=== PATIENT | male | born 1980 | race Caucasian/White ===

== ENCOUNTER → 2023-05-03 13:00 | Outpatient (BNV) | payer OTHER, SELFPAY | PROVIDERS: Visit Provider Psychiatry & Neurology Psychiatry | DX: F33.2 Major depressive disorder, recurrent severe without psychotic features (principal) | CPT/HCPCS: 90867; 90868 ==

== ENCOUNTER → 2023-06-04 13:30 | Outpatient (BNV) | payer OTHER, SELFPAY | PROVIDERS: Visit Provider Psychiatry & Neurology Psychiatry | DX: F33.2 Major depressive disorder, recurrent severe without psychotic features (principal) | CPT/HCPCS: 90868 ==

== ENCOUNTER 2023-07-19 13:30 | Outpatient (RCR) | payer OTHER, SELFPAY ==
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
--- NOTE | 2023-05-04 22:33 | HO.TMSDAILY2 ---
TMS Daily Progress Note Daily TMS Progress Note Date of Service: 05/03/23 Week #: 1 Treatment #(04-03): 1 PHQ-9 Pre-Treatment (03-31): 12 PHQ-9 Most Recent (03-31): 12 Reviewed: TMS Tech Note Reviewed Verification: I have reviewed the TMS Sailboat Captain Note and agree with the contents. The patient remains a candidate to continue TMS treatment per protocol. Assessment and Plan (1) Major depression, recurrent, chronic: Status: Acute (2) Chronic post-traumatic stress disorder (PTSD): Status: Acute (3) ADHD, hyperactive-impulsive type: Status: Acute Plan initial mapping completed without difficulty
--- NOTE | 2023-05-28 16:33 | P.PNPS_ITS ---
TMS Daily Progress Note Daily TMS Progress Note Date of Service: 05/21/23 Week #: 1 Treatment #(04-03): 2 PHQ-9 Pre-Treatment (03-31): 12 PHQ-9 Most Recent (03-31): 12 Reviewed: TMS Tech Note Reviewed Verification: I have reviewed the TMS Survey Superintendent Note and agree with the contents. The patient remains a candidate to continue TMS treatment per protocol. Assessment and Plan (1) Major depression, recurrent, chronic: Status: Acute (2) Chronic post-traumatic stress disorder (PTSD): Status: Acute Plan Treatment restarted after break tolerating treatment well
--- NOTE | 2023-05-28 16:41 | P.PNPS_ITS ---
TMS Daily Progress Note Daily TMS Progress Note Date of Service: 05/22/23 Week #: 1 Treatment #(04-03): 3 PHQ-9 Pre-Treatment (03-31): 12 PHQ-9 Most Recent (03-31): 12 Reviewed: TMS Tech Note Reviewed Verification: I have reviewed the TMS Senior Firewall Engineer Note and agree with the contents. The patient remains a candidate to continue TMS treatment per protocol. Assessment and Plan (1) Chronic post-traumatic stress disorder (PTSD): Status: Acute (2) Major depression, recurrent, chronic: Status: Acute Plan continue tx plan well tolerarated
--- NOTE | 2023-05-28 16:42 | P.PNPS_ITS ---
TMS Daily Progress Note Daily TMS Progress Note Date of Service: 05/23/23 Week #: 1 Treatment #(04-03): 4 PHQ-9 Pre-Treatment (03-31): 12 PHQ-9 Most Recent (03-31): 12 Reviewed: TMS Tech Note Reviewed Verification: I have reviewed the TMS Hatch Boss Note and agree with the contents. The patient remains a candidate to continue TMS treatment per protocol. Assessment and Plan (1) Chronic post-traumatic stress disorder (PTSD): Status: Acute (2) Major depression, recurrent, chronic: Status: Acute Plan MT gradually increased
--- NOTE | 2023-05-28 16:47 | P.PNPS_ITS ---
TMS Daily Progress Note Daily TMS Progress Note Date of Service: 05/24/23 Week #: 1 Treatment #(04-03): 5 PHQ-9 Pre-Treatment (03-31): 12 PHQ-9 Most Recent (03-31): 12 Reviewed: TMS Tech Note Reviewed Verification: I have reviewed the TMS Paintings Conservator Note and agree with the contents. The patient remains a candidate to continue TMS treatment per protocol.
--- NOTE | 2023-06-04 16:07 | HO.TMSDAILY2 ---
TMS Daily Progress Note Daily TMS Progress Note Date of Service: 06/01/23 Week #: 2 Treatment #(-): 9 PHQ-9 Pre-Treatment (-): 12 PHQ-9 Most Recent (03-31): 6 DANIE-7 Pre-Treatment (0-21): 12 DANIE-7 Most Recent (0-21): 6 Reviewed: TMS Tech Note Reviewed Verification: I have reviewed the TMS Compilation Clerk Note and agree with the contents. The patient remains a candidate to continue TMS treatment per protocol.
--- NOTE | 2023-06-07 11:02 | HO.TMSDAILY2 ---
TMS Daily Progress Note Daily TMS Progress Note Date of Service: 05/29/23 Week #: 2 Treatment #(-30): 6 PHQ-9 Pre-Treatment (-): 12 PHQ-9 Most Recent (03-31): 6 DANIE-7 Pre-Treatment (0-21): 12 DANIE-7 Most Recent (0-21): 6 Reviewed: TMS Tech Note Reviewed Verification: I have reviewed the TMS Former Hand Note and agree with the contents. The patient remains a candidate to continue TMS treatment per protocol.
--- NOTE | 2023-06-07 11:03 | P.PNPS_ITS ---
TMS Daily Progress Note Daily TMS Progress Note Date of Service: 05/30/23 Week #: 2 Treatment #(04-03): 7 PHQ-9 Pre-Treatment (-): 12 PHQ-9 Most Recent (03-31): 6 DANIE-7 Pre-Treatment (0-): 12 DANIE-7 Most Recent (0-): 6 Reviewed: TMS Tech Note Reviewed Verification: I have reviewed the TMS Corporate Events Director Note and agree with the contents. The patient remains a candidate to continue TMS treatment per protocol. Assessment and Plan (1) ADHD, hyperactive-impulsive type: Status: Acute (2) Chronic post-traumatic stress disorder (PTSD): Status: Acute (3) Major depression, recurrent, chronic: Status: Acute Plan Continue TMS some insomnia noted question from Prozac question improvement
--- NOTE | 2023-06-07 11:03 | P.PNPS_ITS ---
TMS Daily Progress Note Daily TMS Progress Note Date of Service: 06/06/23 Week #: 3 Treatment #(-30): 12 PHQ-9 Pre-Treatment (-): 12 PHQ-9 Most Recent (03-31): 5 DANIE-7 Pre-Treatment (0-21): 12 DANIE-7 Most Recent (0-21): 4 Reviewed: TMS Tech Note Reviewed Verification: I have reviewed the TMS High Lift Mule Operator Note and agree with the contents. The patient remains a candidate to continue TMS treatment per protocol.
--- NOTE | 2023-06-07 11:06 | HO.TMSDAILY2 ---
TMS Daily Progress Note Daily TMS Progress Note Date of Service: 05/31/23 Week #: 2 Treatment #(-): 8 PHQ-9 Pre-Treatment (-): 12 PHQ-9 Most Recent (03-31): 6 DANIE-7 Pre-Treatment (0-21): 12 DANIE-7 Most Recent (0-21): 6 Reviewed: TMS Tech Note Reviewed Verification: I have reviewed the TMS Packing House Supervisor Note and agree with the contents. The patient remains a candidate to continue TMS treatment per protocol. Assessment and Plan (1) Major depression, recurrent, chronic: Status: Acute Plan Patient showing clear improvement
--- NOTE | 2023-06-07 11:08 | HO.TMSDAILY2 ---
TMS Daily Progress Note Daily TMS Progress Note Date of Service: 06/04/23 Week #: 2 Treatment #(-): 10 PHQ-9 Pre-Treatment (-): 12 PHQ-9 Most Recent (03-31): 6 DANIE-7 Pre-Treatment (0-21): 12 DANIE-7 Most Recent (0-21): 6 Reviewed: TMS Tech Note Reviewed Verification: I have reviewed the TMS Drain Technician Note and agree with the contents. The patient remains a candidate to continue TMS treatment per protocol. Assessment and Plan (1) Major depression, recurrent, chronic: Status: Acute Plan Continue plan of care patient tolerating treatment feeling better
--- NOTE | 2023-06-07 11:11 | P.PNPS_ITS ---
TMS Daily Progress Note Daily TMS Progress Note Date of Service: 06/05/23 Week #: 3 Treatment #(-): 11 PHQ-9 Pre-Treatment (-): 12 PHQ-9 Most Recent (03-31): 6 DANIE-7 Pre-Treatment (0-21): 12 DANIE-7 Most Recent (0-21): 6 Reviewed: TMS Tech Note Reviewed Verification: I have reviewed the TMS Center Human Resources Manager Note and agree with the contents. The patient remains a candidate to continue TMS treatment per protocol. Assessment and Plan (1) Major depression, recurrent, chronic: Status: Acute Plan cont plan of care
--- NOTE | 2023-08-06 22:00 | P.PNPS_ITS ---
TMS Daily Progress Note Daily TMS Progress Note Date of Service: 06/07/23 Week #: 3 Treatment #(04-03): 13 PHQ-9 Pre-Treatment (-): 12 PHQ-9 Most Recent (03-31): 6 DANIE-7 Pre-Treatment (0-21): 12 DANIE-7 Most Recent (0-21): 6 Reviewed: TMS Tech Note Reviewed Verification: I have reviewed the TMS Direct Marketing Specialist Note and agree with the contents. The patient remains a candidate to continue TMS treatment per protocol. Assessment and Plan (1) Major depression, recurrent, chronic: Status: Acute (2) Chronic post-traumatic stress disorder (PTSD): Status: Acute
--- NOTE | 2023-08-06 22:04 | HO.TMSDAILY2 ---
TMS Daily Progress Note Daily TMS Progress Note Date of Service: 06/11/23 Week #: 3 Treatment #(-): 14 PHQ-9 Pre-Treatment (-): 12 PHQ-9 Most Recent (03-31): 6 DANIE-7 Pre-Treatment (0-21): 12 DANIE-7 Most Recent (0-21): 6 Reviewed: TMS Tech Note Reviewed Verification: I have reviewed the TMS Medical Practice Assistant Note and agree with the contents. The patient remains a candidate to continue TMS treatment per protocol. Assessment and Plan (1) Major depression, recurrent, chronic: Status: Acute (2) Chronic post-traumatic stress disorder (PTSD): Status: Acute Plan marked improvement noted
--- NOTE | 2023-08-06 22:07 | P.PNPS_ITS ---
TMS Daily Progress Note Daily TMS Progress Note Date of Service: 08/06/23 Week #: 3 Treatment #(-30): 15 PHQ-9 Pre-Treatment (-): 12 PHQ-9 Most Recent (03-31): 4 DANIE-7 Pre-Treatment (0-21): 12 DANIE-7 Most Recent (0-21): 6 Reviewed: TMS Tech Note Reviewed Verification: I have reviewed the TMS Warning Coordination Meteorologist Note and agree with the contents. The patient remains a candidate to continue TMS treatment per protocol. Assessment and Plan (1) Major depression, recurrent, chronic: Status: Acute (2) Chronic post-traumatic stress disorder (PTSD): Status: Acute Plan marked improvement noted
--- NOTE | 2023-08-06 22:09 | HO.TMSDAILY2 ---
TMS Daily Progress Note Daily TMS Progress Note Date of Service: 06/13/23 Week #: 4 Treatment #(04-03): 16 PHQ-9 Pre-Treatment (-): 12 PHQ-9 Most Recent (03-31): 4 DANIE-7 Pre-Treatment (0-21): 12 DANIE-7 Most Recent (0-21): 6 Reviewed: TMS Tech Note Reviewed Verification: I have reviewed the TMS Attending Urologist Note and agree with the contents. The patient remains a candidate to continue TMS treatment per protocol. Assessment and Plan (1) Major depression, recurrent, chronic: Status: Acute (2) Chronic post-traumatic stress disorder (PTSD): Status: Acute Plan improv ement noted improved no sig side effects
--- NOTE | 2023-08-06 22:10 | HO.TMSDAILY2 ---
TMS Daily Progress Note Daily TMS Progress Note Date of Service: 06/14/23 Week #: 4 Treatment #(-): 17 PHQ-9 Pre-Treatment (-): 12 PHQ-9 Most Recent (03-31): 4 DANIE-7 Pre-Treatment (0-21): 12 DANIE-7 Most Recent (0-21): 6 Reviewed: TMS Tech Note Reviewed Verification: I have reviewed the TMS Benzene Washer Note and agree with the contents. The patient remains a candidate to continue TMS treatment per protocol. Assessment and Plan (1) Major depression, recurrent, chronic: Status: Acute (2) Chronic post-traumatic stress disorder (PTSD): Status: Acute Plan improvement noted improved no sig side effects
--- NOTE | 2023-08-06 22:11 | HO.TMSDAILY2 ---
TMS Daily Progress Note Daily TMS Progress Note Date of Service: 06/19/23 Week #: 4 Treatment #(-30): 19 PHQ-9 Pre-Treatment (-): 12 PHQ-9 Most Recent (03-31): 4 DANIE-7 Pre-Treatment (0-21): 12 DANIE-7 Most Recent (0-21): 6 Reviewed: TMS Tech Note Reviewed Verification: I have reviewed the TMS Cover Making Machine Operator Note and agree with the contents. The patient remains a candidate to continue TMS treatment per protocol. Assessment and Plan (1) Major depression, recurrent, chronic: Status: Acute (2) Chronic post-traumatic stress disorder (PTSD): Status: Acute Plan <del>doing</del> <del>well</del> <del>does</del> <del>note</del> <del>tremor</del> <del>at</del> <del>home</del> <del>appeares</del> <del>to</del> <del>relate</del> <del>to</del> <del>s/e</del> <del>5</del> <del>htp</del> <del>with</del> <del>prozac</del> <del>noo</del> <del>jerks</del> <del>or</del> <del>de;erium</del>
--- NOTE | 2023-08-06 22:12 | HO.TMSDAILY2 ---
TMS Daily Progress Note Daily TMS Progress Note Date of Service: 06/15/23 Week #: 4 Treatment #(-): 18 PHQ-9 Pre-Treatment (-): 12 PHQ-9 Most Recent (03-31): 4 DANIE-7 Pre-Treatment (0-21): 12 DANIE-7 Most Recent (0-21): 6 Reviewed: TMS Tech Note Reviewed Verification: I have reviewed the TMS Fiscal Technician Note and agree with the contents. The patient remains a candidate to continue TMS treatment per protocol. Assessment and Plan (1) Major depression, recurrent, chronic: Status: Acute (2) Chronic post-traumatic stress disorder (PTSD): Status: Acute Plan has had improved resilience
--- NOTE | 2023-08-06 22:19 | HO.TMSDAILY2 ---
TMS Daily Progress Note Daily TMS Progress Note Date of Service: 06/15/23 Week #: 4 Treatment #(-): 18 PHQ-9 Pre-Treatment (-): 12 PHQ-9 Most Recent (03-31): 4 DANIE-7 Pre-Treatment (0-21): 12 DANIE-7 Most Recent (0-21): 6 Reviewed: TMS Tech Note Reviewed Verification: I have reviewed the TMS Ice Cream Mixer Note and agree with the contents. The patient remains a candidate to continue TMS treatment per protocol. Assessment and Plan (1) Major depression, recurrent, chronic: Status: Acute (2) Chronic post-traumatic stress disorder (PTSD): Status: Acute Plan improved mood and cognition
--- NOTE | 2023-08-06 22:19 | HO.TMSDAILY2 ---
TMS Daily Progress Note Daily TMS Progress Note Date of Service: 08/06/23 Week #: 4 Treatment #(-30): 19 PHQ-9 Pre-Treatment (-): 12 PHQ-9 Most Recent (03-31): 4 DANIE-7 Pre-Treatment (0-21): 12 DANIE-7 Most Recent (0-21): 6 Reviewed: TMS Tech Note Reviewed Verification: I have reviewed the TMS Child Adolescent Care Note and agree with the contents. The patient remains a candidate to continue TMS treatment per protocol. Assessment and Plan (1) Major depression, recurrent, chronic: Status: Acute (2) Chronic post-traumatic stress disorder (PTSD): Status: Acute Plan cont plan of care cbt improved
--- NOTE | 2023-08-06 22:20 | HO.TMSDAILY2 ---
TMS Daily Progress Note Daily TMS Progress Note Date of Service: 06/20/23 Week #: 4 Treatment #(-): 20 PHQ-9 Pre-Treatment (-): 12 PHQ-9 Most Recent (03-31): 4 DANIE-7 Pre-Treatment (0-21): 12 DANIE-7 Most Recent (0-): 6 Reviewed: TMS Tech Note Reviewed Verification: I have reviewed the TMS Checkering Machine Adjuster Note and agree with the contents. The patient remains a candidate to continue TMS treatment per protocol. Assessment and Plan (1) Major depression, recurrent, chronic: Status: Acute (2) Chronic post-traumatic stress disorder (PTSD): Status: Acute Plan cont plan of care cbt improved prozac has been decreased by pt
--- NOTE | 2023-08-06 22:20 | HO.TMSDAILY2 ---
TMS Daily Progress Note Daily TMS Progress Note Date of Service: 06/21/23 Week #: 5 Treatment #(-30): 21 PHQ-9 Pre-Treatment (-): 12 PHQ-9 Most Recent (03-31): 4 DANIE-7 Pre-Treatment (0-21): 12 DANIE-7 Most Recent (0-21): 6 Reviewed: TMS Tech Note Reviewed Verification: I have reviewed the TMS Supervisor Game Farm Note and agree with the contents. The patient remains a candidate to continue TMS treatment per protocol.
--- NOTE | 2023-08-06 22:38 | P.PNPS_ITS ---
TMS Daily Progress Note Daily TMS Progress Note Date of Service: 08/06/23 Week #: 5 Treatment #(-30): 23 PHQ-9 Pre-Treatment (-): 12 PHQ-9 Most Recent (03-31): 4 DANIE-7 Pre-Treatment (0-21): 12 DANIE-7 Most Recent (0-21): 6 Reviewed: TMS Tech Note Reviewed Verification: I have reviewed the TMS Logistic Manager Note and agree with the contents. The patient remains a candidate to continue TMS treatment per protocol. Assessment and Plan (1) Major depression, recurrent, chronic: Status: Acute (2) Chronic post-traumatic stress disorder (PTSD): Status: Acute Plan cont plan of care improved
--- NOTE | 2023-08-06 22:38 | P.PNPS_ITS ---
TMS Daily Progress Note Daily TMS Progress Note Date of Service: 06/25/23 Week #: 5 Treatment #(-30): 22 PHQ-9 Pre-Treatment (-): 12 PHQ-9 Most Recent (03-31): 4 DANIE-7 Pre-Treatment (0-21): 12 DANIE-7 Most Recent (0-21): 6 Reviewed: TMS Tech Note Reviewed Verification: I have reviewed the TMS Environmental Studies Department Chair Note and agree with the contents. The patient remains a candidate to continue TMS treatment per protocol. Assessment and Plan (1) Major depression, recurrent, chronic: Status: Acute (2) Chronic post-traumatic stress disorder (PTSD): Status: Acute Plan cont plan of care improved
--- NOTE | 2023-08-06 22:38 | HO.TMSDAILY2 ---
TMS Daily Progress Note Daily TMS Progress Note Date of Service: 06/27/23 Week #: 5 Treatment #(-30): 24 PHQ-9 Pre-Treatment (-): 12 PHQ-9 Most Recent (03-31): 4 DANIE-7 Pre-Treatment (0-21): 12 DANIE-7 Most Recent (0-21): 6 Reviewed: TMS Tech Note Reviewed Verification: I have reviewed the TMS Contact Center Agent Note and agree with the contents. The patient remains a candidate to continue TMS treatment per protocol.
--- NOTE | 2023-08-06 22:39 | HO.TMSDAILY2 ---
TMS Daily Progress Note Daily TMS Progress Note Date of Service: 06/28/23 Week #: 5 Treatment #(-30): 25 PHQ-9 Pre-Treatment (1-): 12 PHQ-9 Most Recent (-): 4 DANIE-7 Pre-Treatment (0-21): 12 DANIE-7 Most Recent (0-21): 6 Reviewed: TMS Tech Note Reviewed Verification: I have reviewed the TMS Pre Sales Architect Note and agree with the contents. The patient remains a candidate to continue TMS treatment per protocol. Assessment and Plan (1) Major depression, recurrent, chronic: Status: Acute Plan cont tx plan
--- NOTE | 2023-08-06 22:47 | P.PNPS_ITS ---
TMS Daily Progress Note Daily TMS Progress Note Date of Service: 08/06/23 Week #: 6 Treatment #(-30): 26 PHQ-9 Pre-Treatment (-): 12 PHQ-9 Most Recent (03-31): 4 DANIE-7 Pre-Treatment (0-21): 12 DANIE-7 Most Recent (0-21): 6 Reviewed: TMS Tech Note Reviewed Verification: I have reviewed the TMS Inventory Control Associate Note and agree with the contents. The patient remains a candidate to continue TMS treatment per protocol.
--- NOTE | 2023-08-06 22:47 | P.PNPS_ITS ---
TMS Daily Progress Note Daily TMS Progress Note Date of Service: 07/04/23 Week #: 6 Treatment #(-): 28 PHQ-9 Pre-Treatment (-): 12 PHQ-9 Most Recent (03-31): 4 DANIE-7 Pre-Treatment (0-21): 12 DANIE-7 Most Recent (0-21): 6 Reviewed: TMS Tech Note Reviewed Verification: I have reviewed the TMS Printing Grey Cloth Tender Note and agree with the contents. The patient remains a candidate to continue TMS treatment per protocol. Assessment and Plan (1) Major depression, recurrent, chronic: Status: Acute Plan cont tx plan
--- NOTE | 2023-08-06 22:47 | P.PNPS_ITS ---
TMS Daily Progress Note Daily TMS Progress Note Date of Service: 07/03/23 Week #: 6 Treatment #(-): 27 PHQ-9 Pre-Treatment (-): 12 PHQ-9 Most Recent (03-31): 4 DANIE-7 Pre-Treatment (0-21): 12 DANIE-7 Most Recent (0-21): 6 Reviewed: TMS Tech Note Reviewed Verification: I have reviewed the TMS Travel Trailer Components Assembler Note and agree with the contents. The patient remains a candidate to continue TMS treatment per protocol. Assessment and Plan (1) Major depression, recurrent, chronic: Status: Acute Plan cont tx plan
--- NOTE | 2023-08-06 22:47 | HO.TMSDAILY2 ---
TMS Daily Progress Note Daily TMS Progress Note Date of Service: 07/02/23 Week #: 6 Treatment #(-): 26 PHQ-9 Pre-Treatment (-): 12 PHQ-9 Most Recent (-): 4 DANIE-7 Pre-Treatment (0-21): 12 DANIE-7 Most Recent (0-21): 6 Reviewed: TMS Tech Note Reviewed Verification: I have reviewed the TMS Cardiovascular Invasive Specialist Note and agree with the contents. The patient remains a candidate to continue TMS treatment per protocol.
--- NOTE | 2023-08-06 23:02 | HO.TMSDAILY2 ---
TMS Daily Progress Note Daily TMS Progress Note Date of Service: 07/05/23 Week #: 6 Treatment #(-): 29 PHQ-9 Pre-Treatment (-): 12 PHQ-9 Most Recent (03-31): 3 DANIE-7 Pre-Treatment (0-21): 12 DANIE-7 Most Recent (0-21): 6 Reviewed: TMS Tech Note Reviewed Verification: I have reviewed the TMS Rail Car Operator Note and agree with the contents. The patient remains a candidate to continue TMS treatment per protocol.
--- NOTE | 2023-08-06 23:03 | P.PNPS_ITS ---
TMS Daily Progress Note Daily TMS Progress Note Date of Service: 07/11/23 Week #: 7 Treatment #(-): 32 PHQ-9 Pre-Treatment (-): 12 PHQ-9 Most Recent (03-31): 2 DANIE-7 Pre-Treatment (0-21): 12 DANIE-7 Most Recent (0-21): 6 Reviewed: TMS Tech Note Reviewed Verification: I have reviewed the TMS Site Manager Note and agree with the contents. The patient remains a candidate to continue TMS treatment per protocol. Assessment and Plan (1) Major depression, recurrent, chronic: Status: Acute Plan Patient states continues to show clear improvement feels treatment has been very helpful . No adverse effect noted
--- NOTE | 2023-08-06 23:03 | P.PNPS_ITS ---
TMS Daily Progress Note Daily TMS Progress Note Date of Service: 07/09/23 Week #: 7 Treatment #(04-03): 31 PHQ-9 Pre-Treatment (03-31): 12 PHQ-9 Most Recent (03-31): 3 DANIE-7 Pre-Treatment (0-): 12 DANIE-7 Most Recent (0-): 6 Reviewed: TMS Tech Note Reviewed Verification: I have reviewed the TMS Aircraft Ordnance Systems Mechanic Note and agree with the contents. The patient remains a candidate to continue TMS treatment per protocol. Assessment and Plan (1) Major depression, recurrent, chronic: Status: Acute Plan Patient states continues to show clear improvement feels treatment has been very helpful . Patient did have some degree of tremor not just during treatment that appeared to be secondary to 5 HTP which has a interaction with fluoxetine patient no longer taking that supplement
--- NOTE | 2023-08-06 23:03 | HO.TMSDAILY2 ---
TMS Daily Progress Note Daily TMS Progress Note Date of Service: 07/13/23 Week #: 7 Treatment #(04-03): 33 PHQ-9 Pre-Treatment (-): 12 PHQ-9 Most Recent (03-31): 2 DANIE-7 Pre-Treatment (0-21): 12 DANIE-7 Most Recent (0-): 6 Reviewed: TMS Tech Note Reviewed Verification: I have reviewed the TMS Vice President Sales And Marketing Note and agree with the contents. The patient remains a candidate to continue TMS treatment per protocol. Assessment and Plan (1) Major depression, recurrent, chronic: Status: Acute Plan Patient states continues to show clear improvement feels treatment has been very helpful . Feels quite optimistic feels he is functioning differently at home and at work decreased anxiety and reactivity
--- NOTE | 2023-08-06 23:04 | HO.TMSDAILY2 ---
TMS Daily Progress Note Daily TMS Progress Note Date of Service: 07/06/23 Week #: 6 Treatment #(-): 30 PHQ-9 Pre-Treatment (-): 12 PHQ-9 Most Recent (03-31): 3 DANIE-7 Pre-Treatment (0-21): 12 DANIE-7 Most Recent (0-): 6 Reviewed: TMS Tech Note Reviewed Verification: I have reviewed the TMS Financial Compliance Manager Note and agree with the contents. The patient remains a candidate to continue TMS treatment per protocol. Assessment and Plan (1) Major depression, recurrent, chronic: Status: Acute Plan Patient states continues to show clear improvement feels treatment has been very helpful
--- NOTE | 2023-08-12 21:24 | P.PNPS_ITS ---
TMS Daily Progress Note Daily TMS Progress Note Date of Service: 07/16/23 Week #: 8 Treatment #(04-03): 34 PHQ-9 Pre-Treatment (-): 12 PHQ-9 Most Recent (03-31): 0 DANIE-7 Pre-Treatment (0-21): 12 DANIE-7 Most Recent (0-21): 6 Reviewed: TMS Tech Note Reviewed Verification: I have reviewed the TMS Compensation Coordinator Note and agree with the contents. The patient remains a candidate to continue TMS treatment per protocol. Assessment and Plan (1) Major depression, recurrent, chronic: Status: Acute (2) Chronic post-traumatic stress disorder (PTSD): Status: Acute Plan Patient exuberant feels enthusiastic over his excellent response
--- NOTE | 2023-08-12 21:27 | HO.TMSDAILY2 ---
TMS Daily Progress Note Daily TMS Progress Note Date of Service: 07/18/23 Week #: 8 Treatment #(04-03): 35 PHQ-9 Pre-Treatment (-): 12 PHQ-9 Most Recent (03-31): 0 DANIE-7 Pre-Treatment (0-21): 12 DANIE-7 Most Recent (0-21): 6 Reviewed: TMS Tech Note Reviewed Verification: I have reviewed the TMS Media Traffic Manager Note and agree with the contents. The patient remains a candidate to continue TMS treatment per protocol. Assessment and Plan (1) Major depression, recurrent, chronic: Status: Acute (2) Chronic post-traumatic stress disorder (PTSD): Status: Acute Plan Treatment 35 patient feeling quite positive no complaints of side effects much improved
--- NOTE | 2023-08-12 21:29 | HO.TMSDAILY2 ---
TMS Daily Progress Note Daily TMS Progress Note Date of Service: 07/19/23 Week #: 8 Treatment #(-): 36 PHQ-9 Pre-Treatment (-): 12 PHQ-9 Most Recent (03-31): 0 DANIE-7 Pre-Treatment (0-21): 12 DANIE-7 Most Recent (0-21): 6 Reviewed: TMS Tech Note Reviewed Verification: I have reviewed the TMS Ultrasonic Tester Note and agree with the contents. The patient remains a candidate to continue TMS treatment per protocol. Assessment and Plan (1) Chronic post-traumatic stress disorder (PTSD): Status: Acute (2) Major depression, recurrent, chronic: Status: Acute Plan Patient completed treatment course remains quite improved
--- NOTE | 2023-08-12 21:31 | HO.TMSDCTER ---
TMS Discharge-Termination Chart Review Treatments Completed: THIRTY-SIX TREATMENTS COMPLETED WITHOUT DIFFICULTY Initial MT%: 80% Final MT%: 120% Was Remapping Required: No Clinical Evaluation/Review PHQ-9 Pre-Treatment (03-31): 12 PHQ-9 Post-Treatment (03-31): 0 DANIE-7 Pre-Treatment (0-21): 12 DANIE-7 Most Recent (0-21): 3 CGI-I Initial: 0 = Not Assessed CGI-I Post Treatment: 0 = Not Assessed Q-LES-Q-SF Pre-Treatment: 50 Q-LES-Q-SF Post-Treatment: 58 Adverse Effects Local Pain/Discomfort: No Headache: No Facial Pain: No Seizure: No Impression Impression: Patient did have a tremor for a short period of time during treatment appeared to be related to medication side effects Recommendations TMS: Discontinue Medication Changes: Fluoxetine had been lowered [id number] HTP discontinued Follow-up w/ Prescriber: [facility] Assessment and Plan (1) Chronic post-traumatic stress disorder (PTSD): Status: Acute (2) Major depression, recurrent, chronic: Status: Acute (3) ADHD, hyperactive-impulsive type: Status: Acute Plan The patient achieved marked remission had an excellent response did not require re mapping
== END 2023-07-19 14:00 | disposition home or self-care (01) ==
LOC: HO.PTMS 13:30
PROVIDERS: Visit Provider Psychiatry & Neurology Psychiatry
DX: F33.9 Major depressive disorder, recurrent, unspecified (principal); F43.12 Post-traumatic stress disorder, chronic; F90.1 Attention-deficit hyperactivity disorder, predominantly hyperactive type
CPT/HCPCS: 90867; 90868; 99204